=== PATIENT | female | born 1995 | race African-American/Black ===

== ENCOUNTER 2023-03-09 23:25 | Emergency (ER) | payer BC ==
[~2023-03-09] VITALS: Ht 172.7 cm; Wt 62.3 kg
[2023-03-09 23:36] VITALS: BP 119/81; PULSE 80; RESP 14; TEMP 98.2; O2SAT 98
[2023-03-10] MEDS ORDERED: LIDOCAINE HCL/PF 1% 10 MG/ML 5ML VIAL INFIL ONE (01:15)
[2023-03-10] MEDS ORDERED: BACITRACIN ZINC OINT UDPKT TOP ONE (01:15)
== END 2023-03-10 02:11 | disposition home or self-care (01) ==
LOC: ER 23:41
DX: S61.411A Laceration without foreign body of right hand, initial encounter (principal); X58.XXXA Exposure to other specified factors, initial encounter; Y93.89 Activity, other specified; Y92.89 Other specified places as the place of occurrence of the external cause; Y99.8 Other external cause status
CPT/HCPCS: 99282; J3490